=== PATIENT | male | born 2005 | race Caucasian/White ===

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

== ENCOUNTER 2023-11-29 08:07 | Emergency (ER) | payer OTHER, SELFPAY ==
[2023-11-29 08:18] VITALS: BP 118/50; PULSE 113; RESP 16; TEMP 37.7; O2SAT 99
--- NOTE | 2023-11-29 08:20 | ED.URI ---
HPI - URI/Sore Throat General Stated Complaint: Sharp Pain in Right Side and Neck, Congesion Time Seen by Provider: 11/29/23 08:22 Source: patient and RN notes reviewed Mode of arrival: ambulatory Limitations: no limitations History of Present Illness HPI Narrative: 18-year-old male presents with concern for 5 day history of nasal congestion, rhinorrhea, sore throat, body aches, will right ear pain, pain behind his right ear. He reports he had general malaise, chills, fever the 1st day of symptoms. He has been taking DayQuil. He denies known sick contacts. MD elicited complaint: sore throat and nasal congestion Related Data Allergies Allergy/AdvReac Type Severity Reaction Status Date / Time No Known Allergies Allergy Unverified 11/29/23 08:32 Review of Systems Review of Systems: CONSTITUTIONAL: Reports malaise, chills, sweats, fever. EYES: Denies visual changes, redness, or discharge. ENT: Reports rhinorrhea, congestion, sinus pain, otalgia and sore throat. CARDIOVASCULAR: Denies chest pain, palpitations, or edema. RESPIRATORY: Reports cough. Denies dyspnea. GASTROINTESTINAL: Denies abdominal pain, nausea, vomiting, diarrhea SKIN: Denies rash or itching. MUSCULOSKELETAL: Reports myalgia. NEUROLOGIC: Denies headache. All systems reviewed & are unremarkable except as noted in HPI and below PMFSH Past Medical History Medical History (Updated 11/29/23 @ 08:38 by Jacqueline Vera NP) Acute midline thoracic back pain Acute suppurative otitis media of right ear without spontaneous rupture of tympanic membrane External otitis of right ear Need for HPV vaccination PND (post-nasal drip) School physical exam Family History Family History (Updated 02/18/23 @ 16:12 by Claribel De La Vega MD) Grandparent Breast cancer Social History Social History (Updated 02/18/23 @ 14:04 by Audrey Farias) Social History: Single Smoking status: Never smoker Second hand tobacco smoke exposure: No Alcohol intake: never Substance use: never Substance use type: does not use Lack of Transportation: No Lack of Food: Never True Current Housing: I Have Housing Concerned About Future Housing: No Difficulty Paying Gas/Electric Bills: No Difficulty Paying for Meds: No Currently Unemployed: No Education: Decline to Answer Difficulty w/ Childcare or Family Care: No Living arrangements: with family Occupation/Education: occupation Gender identity (if verbalized by the patient): Male Sexual Orientation (if Verbalized by the Patient): Straight or Heterosexual Comments At time of signature, agree with nursing past medical, surgical, social and family history. There is no relevant family history pertinent to the presenting complaint Exam Narrative: GENERAL: Well-appearing, well-nourished, and in no acute distress. HEAD: Normocephalic EYES: PERRLA, conjunctivae clear ENT: Nares clear, turbinates edematous and erythematous, clear discharge. Mucous membranes moist. TM pearly snell with dull light reflex bilaterally; no tragal tenderness. Oropharynx not erythematous without lesions. Tonsils not enlarged and without exudate, no drooling, no hoarseness, no trismus, uvula midline. NECK: Supple. No lymphadenopathy CHEST: Clear to auscultation, breath sounds equal. No wheezing, rhonchi, rales, or stridor. No respiratory distress, speaks in full sentences. HEART: Regular rate and rhythm. No murmur heard. SKIN: Warm, dry, no rash. NEURO: Alert and oriented x3. PSYCH: Normal mood and affect Course Course Emergency Course: Patient is aware of diagnosis, understands and agrees to treatment plan. Anticipatory guidance given. Patient agrees to follow-up as directed and is aware of reasons to seek care at the emergency department. Portions of this record may have been created with voice recognition software Level of Care: Express Care Visit Vital Signs Vital signs: Vital Signs Temperatur
== END 2023-11-29 08:50 | disposition home or self-care (01) ==
PROVIDERS: Emergency Provider Nurse Practitioner; PCP Family Medicine
DX: B34.9 Viral infection, unspecified (principal)
CPT/HCPCS: 87081; 87880; 99213; G0463